=== PATIENT | male | born 1975 | race African-American/Black ===

== ENCOUNTER 2022-02-23 13:52 | Emergency (ER) | payer OTHER, SELFPAY ==
--- NOTE | 2022-02-23 14:03 | ED.BACK ---
HPI - Back Pain/Injury General Chief Complaint: Back Pain/Injury Stated Complaint: Back pain Time Seen by Provider: 02/23/22 14:03 Source: patient and RN notes reviewed Mode of arrival: ambulatory Limitations: no limitations History of Present Illness HPI Narrative: 46-year-old male presents with concern for back pain. He reports history of bulging discs that flare up occasionally. Reports symptoms started flaring yesterday. He reports pain is worsened by bending, twisting, getting up from standing. He denies taking any medications for symptoms. He denies abdominal pain, fever, loss of bowel or bladder function,. He denies weakness in any extremity. Reports the pain radiates to the buttocks and groin which is typical for his pain MD elicited complaint: back pain Related Data Home Medications Medication Instructions Recorded Confirmed apixaban 5 mg tablet (Eliquis) 5 mg PO DAILY 02/23/22 02/23/22 metoprolol tartrate 25 mg tablet 25 mg PO DAILY 02/23/22 02/23/22 telmisartan 40 mg tablet 40 mg PO DAILY 02/23/22 02/23/22 Allergies Allergy/AdvReac Type Severity Reaction Status Date / Time No Known Allergies Allergy Verified 02/23/22 14:03 Review of Systems Review of Systems: CONSTITUTIONAL: Denies malaise, chills, sweats, or fever. CARDIOVASCULAR: Denies chest pain, palpitations, or edema. RESPIRATORY: Denies cough or dyspnea. GASTROINTESTINAL: Denies abdominal pain, nausea, vomiting, diarrhea, loss of bowel function GENITOURINARY: Denies dysuria, hematuria, frequency, loss of bladder function. SKIN: Denies rash or itching. MUSCULOSKELETAL: Reports low back pain radiates to the buttocks and groin NEUROLOGIC: Denies numbness, weakness, or headache. All systems reviewed & are unremarkable except as noted in HPI and below PMFSH Comments At time of signature, agree with nursing past medical, surgical, social and family history. There is no relevant family history pertinent to the presenting complaint Exam Narrative: GENERAL: Well-appearing, well-nourished, and in no acute distress. HEAD: Normocephalic, atraumatic. EYES: PERRLA and EOMI. NECK: Supple. No lymphadenopathy. CHEST: Clear to auscultation. No respiratory distress. HEART: Regular rate and rhythm. Distal pulses palpable and equal, cap refill <3 seconds ABDOMEN: Soft, nontender, nondistended, normal active bowel sounds, no palpable or pulsatile masses. No CVA tenderness MUSCULOSKELETAL: Normal range of motion and strength in all extremities; 5/5 strength with hip flexion and extension, dorsiflexion and extension, knee flexion and extension, plantar flexion and extension. Normal sensation in dermatomal distributions with sensitivity to light touch and pain. No midline back tenderness to palpation. No paraspinal tenderness. Transfers from lying to sitting to standing. SKIN: Warm, dry, no rash. No ecchymosis, erythema, open wounds to back. NEURO: No focal deficits. Alert and oriented x3. Reflexes intact. Normal gait. PSYCH: Normal mood and affect Course Course Emergency Course: Patient reports the steroid shot usually takes care of his pain, he states muscle relaxers do not work, he typically does not need to follow up as well his relaxers with more steroids Patient is aware of diagnosis, understands and agrees to treatment plan. Anticipatory guidance given. Patient agrees to follow-up as directed and is aware of reasons to seek care at the emergency department. Portions of this record may have been created with voice recognition software Level of Care: Express Care Visit Vital Signs Vital signs: Vital Signs Temperature 96.7 F L 02/23/22 14:09 Pulse Rate 71 02/23/22 14:09 Respiratory Rate 18 02/23/22 14:09 Blood Pressure 122/75 02/23/22 14:09 Pulse Oximetry 99 02/23/22 14:09 Oxygen Delivery Room Air 02/23/22 14:09 Temperature 96.7 F L 02/23/22 14:09 Pulse Rate 71 02/23/22 14:09 Respiratory Rate 18 02/23/22 14:09 Blood Pressure
[2022-02-23 14:09] VITALS: BP 122/75; PULSE 71; RESP 18; TEMP 35.9; O2SAT 99
[2022-02-23] MEDS: methylPREDNISolone SOD SUCC 125 MG VIAL IM (14:27)
== END 2022-02-23 14:32 | disposition home or self-care (01) ==
PROVIDERS: Emergency Provider Nurse Practitioner
DX: M54.50 Low back pain, unspecified (principal); I48.91 Unspecified atrial fibrillation; I10 Essential (primary) hypertension; Z98.52 Vasectomy status
CPT/HCPCS: 96372; 99213; G0463; J2930